=== PATIENT | male | born 2000 | race Hispanic/Latino ===

== ENCOUNTER 2021-03-09 10:05 | Emergency (ER) | payer SELFPAY ==
[2021-03-09] MEDS ORDERED: Fentanyl 100 MCG/2 ML VIAL ONE ×2 (10:50→11:58)
[2021-03-09] MEDS ORDERED: Ketorolac Tromethamine 30 MG/ML VIAL ONE (10:50)
[2021-03-09 12:56] LABS: SARS-CoV-2 NAA Rapid Test DETECTED (NotDetected)
== END 2021-03-09 12:25 | disposition short-term general hospital (02) ==
LOC: EDBD → BURERS 10:05
DX: T18.128A Food in esophagus causing other injury, initial encounter (principal)
CPT/HCPCS: 70490; 96374; 96375; 96376; J1885; J3010; U0002